=== PATIENT | male | born 1985 | race Caucasian/White ===

== ENCOUNTER 2022-06-22 16:21 | Inpatient (IN) ==
[2022-06-22] MEDS ORDERED: NS 1,000 ML IV 1,000 ML IV ONE (16:42)
[2022-06-22] MEDS ORDERED: ZOFRAN INJ 4 MG VIAL IVP ONE (16:42)
[2022-06-22] MEDS ORDERED: DEMEROL INJ IM ONE (16:42)
--- NOTE | 2022-06-22 16:42 | DR.ABDMALE ---
HPI Time seen Time Seen by Provider: 06/22/22 16:39 PE Vital Signs Vital Signs: Temp Pulse Resp BP Pulse Ox O2 Del Method 06/22/22 20:27 22 06/22/22 21:01 113/74 06/22/22 21:01 107 H 40 H 06/22/22 21:00 109 H 44 H 06/22/22 20:45 107 H 40 H 06/22/22 20:30 102 H 25 H 06/22/22 20:30 124/79 06/22/22 20:30 102 H 25 H 06/22/22 20:30 124/79 06/22/22 20:15 110 H 44 H 06/22/22 20:00 113 H 49 H 06/22/22 20:00 121/70 06/22/22 19:45 113 H 36 H 06/22/22 19:30 111 H 37 H 06/22/22 19:30 117/71 06/22/22 19:15 113 H 43 H 06/22/22 19:57 30 H 06/22/22 19:00 114 H 36 H 06/22/22 19:00 119/75 06/22/22 17:50 35 H 06/22/22 18:45 122 H 46 H 100 06/22/22 18:30 125 H 36 H 98 06/22/22 18:28 121 H 30 H 98 06/22/22 18:28 172/120 06/22/22 18:15 124 H 28 H 96 06/22/22 18:00 126 H 37 H 92 L 06/22/22 17:45 126 H 28 H 85 L 06/22/22 17:41 125 H 99 06/22/22 17:15 119 H 27 H 06/22/22 17:00 132 H 48 H 06/22/22 16:45 141 H 35 H 06/22/22 17:20 30 H 06/22/22 16:38 135/94 06/22/22 16:38 135 H 39 H 94 L 06/22/22 16:30 141 H 35 H 95 06/22/22 16:24 154 H 50 H 83 L 06/22/22 16:22 97.8 F 153 H 17 135/94 97 Room Air ROR Labs Reviewed Result Diagrams: 06/25/22 05:13 06/25/22 05:13 Laboratory: WBC 13.3 X10^3/uL (3.6-10.0) H 06/22/22 20: RBC 4.50 X10^6/uL (4.7-6.0) L 06/22/22 20: Hgb 13.7 g/dL (13.5-18.0) 06/22/22 20: Hct 39.5 % (42.0-54.0) L 06/22/22 20: MCV 87.8 fL (80.0-100.0) 06/22/22 20: MCH 30.4 pg (27.0-34.0) 06/22/22 20: MCHC 34.6 g/dL (33.0-35.0) 06/22/22 20: RDW 13.7 % (11.6-16.5) 06/22/22: Plt Count 262 X10^3/uL (150.0-450.0) 06/22/22 20: MPV 8.9 fL (7.4-11.0) 06/22/22 20: Neut % (Auto) 78.2 % (42.0-75.0) H 06/22/22 20: Lymph % (Auto) 12.9 % (21.0-51.0) L 06/22/22: [place] % (Auto) 8.4 % (0.0-13.0) 06/22/22: Eos % (Auto) 0.0 % (0.9-2.9) L 06/22/22: Baso % (Auto) 0.5 % (0.2-1.0) 06/22/22: Neut # (Auto) 10.4 x10^3/uL (2.2-4.8) H 06/22/22 20: Lymph # (Auto) 1.7 X10^3/uL (1.3-2.9) 06/22/22 20: [place] # (Auto) 1.1 x10^3/uL (0.3-0.8) H 06/22/22 20: Eos # (Auto) 0.0 x10^3/uL (0.0-0.2) 06/22/22 20:23 Baso # (Auto) 0.1 X10^3/uL (0.0-0.1) 06/22/22 20:23 Absolute Nucleated RBC 0.0 /100WBC 06/22/22 20:23 Sodium 138 mmol/L (136-145) 06/22/22 16:36 Corrected Sodium 138 mmol/L (136-145) 06/22/22 16:36 Potassium 4.4 mmol/L (3.5-5.1) 06/22/22 16:36 Chloride 102 mmol/L (98-107) 06/22/22 16:36 Carbon Dioxide 27.5 mmol/L (21-32) 06/22/22 16:36 BUN 20 mg/dL (7-18) H 06/22/22 16:36 Creatinine 1.19 mg/dL (0.70-1.30) 06/22/22 16:36 Est GFR (MDRD) Af Amer > 60 (>60) 06/22/22 16:36 Est GFR (MDRD) Non-Af > 60 (>60) 06/22/22 16:36 Glucose 111 mg/dL (65-99) H 06/22/22 16:36 Calcium 9.3 mg/dL (8.5-10.1) 06/22/22 16:36 Corrected Calcium TNP 06/22/22 16:36 Total Bilirubin 0.70 mg/dL (0.2-1.0) 06/22/22 16:36 AST 11 Units/L (15-37) L 06/22/22 16:36 ALT 18 Units/L (12-78) 06/22/22 16:36 Alkaline Phosphatase 77 Units/L (46-116) 06/22/22 16:36 Creatine Kinase 47 Units/L (39-308) 06/22/22 16:36 Troponin I High Sens 6.8 ng/L (4.0-60.0) 06/22/22 16:36 Total Protein 7.8 g/dL (6.4-8.2) 06/22/22 16:36 Albumin 4.5 g/dL (3.4-5.0) 06/22/22 16:36 Globulin 3.3 g/dL (2.5-4.5) 06/22/22 16:36 Albumin/Globulin Ratio 1.4 Ratio (1.1-2.1) 06/22/22 16:36 Amylase 34 Units/L (25-115) 06/22/22 16:36 Lipase 54 Units/L (73-393) L 06/22/22 16:36 Specimen Type Clean catch urine 06/22/22 18:48 Urine Color Yellow (YELLOW) 06/22/22 18:48 Urine Appearance Clear (CLEAR) 06/22/22 18:48 Urine pH 5.0 (5.0 - 8.0) 06/22/22 18:48 Ur Specific [place] 1.010 (1.000-1.030) 06/22/22 18:48 Urine Protein 2+ (NEGATIVE) 06/22/22 18:48 Urine Glucose (UA) Negative (NEGATIVE) 06/22/22 18:48 Urine Ketones 3+ (NEGATIVE) 06/22/22 18:48 Urine Blood 1+ (NEGATIVE) 06/22/22 18:48 Urine Nitrite Negative (NEGATIVE) 06/22/22 18:48 Urine Bilirubin Negative (NEGATIVE) 06/22/22 18:48 Urine Urobilinogen 1+ (NORMAL) 06/22/22 18:48 Ur Leukocyte Esterase Negative (NEGATIVE) 06/22/22 18:48 Urine RBC 0-2 /HPF (0-3) 06/22/22 18:48 Urine WBC None seen /HPF (0-5) 06/22/22 18:48 Ur Squamous Epith Cells Few /HPF (NEGATIVE) 06/22/22 18:48 Urine Bacteria Trace /HPF (NEGATIVE) 06/22/22 18:48 Urine Mucus Moderate /HPF (NEGATIVE) 06/22/22 18:48 Ur Culture Indicated? No/not indicated 06/22/22 18:48 Urine Opiates Screen Negative (NEG=<300) 06/22/22 18:48 Urine Methadone Screen Negative (NEG=<300) 06/22/22 18:48 Ur Barbiturates Screen Negative (NEG=<200) 06/22/22 18:48 Ur Phencyclidine Scrn Negative (NEG=<25) 06/22/22 18:48 Ur Amphetamines Screen Positive (NEG=<1000) 06/22/22 18:48 U Benzodiazepines Scrn Negative (NEG=<200) 06/22/22 18:48 Urine Cocaine Screen Negative (NEG=<300) 06/22/22 18:48 U Marijuana (THC) Screen Positive (NEG=<50) A 06/22/22 18:48 Opioid Opioid Risk Tool Total: 0 Total Score Risk Category: Low Risk Copyright: Kevin STYLES predicting aberrant behaviors Discharge Plan Discharge Plan Patient Disposition: 09 ADMITTED INPATIENT Condition: Stable
[2022-06-22 16:46] LABS: BASOPHILS # (AUTO) 0.1 X10^3/uL (0.0-0.1); BASOPHILS % (AUTO) 0.3 % (0.2-1.0); EOSINOPHILS % (AUTO) 0.2 % (0.9-2.9); HEMATOCRIT 43.6 % (42.0-54.0); LYMPHOCYTES # (AUTO) 1.4 X10^3/uL (1.3-2.9); MEAN CORPUSCULAR HEMOGLOBIN 30.4 pg (27.0-34.0); MEAN CORPUSCULAR HGB CONC 34.5 g/dL (33.0-35.0); MEAN CORPUSCULAR VOLUME 88.2 fL (80.0-100.0); MEAN PLATELET VOLUME 9.2 fL (7.4-11.0); MONOCYTES # (AUTO) 1.4 x10^3/uL (0.3-0.8); MONOCYTES % (AUTO) 7.1 % (0.0-13.0); NEUTROPHILS # (AUTO) 16.7 x10^3/uL (2.2-4.8); NEUTROPHILS % (AUTO) 85.4 % (42.0-75.0); RED BLOOD COUNT 4.94 X10^6/uL (4.7-6.0); RED CELL DISTRIBUTION WIDTH 13.3 % (11.6-16.5); WHITE BLOOD COUNT 19.6 X10^3/uL (3.6-10.0)
--- NOTE | 2022-06-22 16:57 | EKG ---
Test Reason : tachycardia Blood Pressure : */* mmHG Vent. Rate : 137 BPM Atrial Rate : 137 BPM P-R Int : 102 ms QRS Dur : 66 ms QT Int : 266 ms P-R-T Axes : * 60 38 degrees QTc Int : 401 ms Sinus tachycardia with short VT Otherwise normal ECG Confirmed by Fili Quinonez ([id number]) on 06/24/2022 10:56:38 AM Referred By: Confirmed By: Fili Quinonez
[2022-06-22 17:01] LABS: ALANINE AMINOTRANSFERASE 18 Units/L (12-78); ALBUMIN 4.5 g/dL (3.4-5.0); ALKALINE PHOSPHATASE 77 Units/L (46-116); AMYLASE 34 Units/L (25-115); ASPARTATE AMINO TRANSFERASE 11 Units/L (15-37); BLOOD UREA NITROGEN 20 mg/dL (7-18); CALCIUM 9.3 mg/dL (8.5-10.1); CARBON DIOXIDE 27.5 mmol/L (21-32); CHLORIDE 102 mmol/L (98-107); COR NA(FOR HYPERGLY) 138 mmol/L (136-145); CREATINE KINASE 47 Units/L (39-308); CREATININE 1.19 mg/dL (0.70-1.30); LIPASE 54 Units/L (73-393); SODIUM 138 mmol/L (136-145); TOTAL PROTEIN 7.8 g/dL (6.4-8.2); eGFR NON BLACK RACES > 60 (>60)
[2022-06-22] MEDS ORDERED: DEMEROL INJ ONE (17:06)
[2022-06-22] MEDS ORDERED: ZOFRAN INJ 4 MG VIAL ONE (17:06)
[2022-06-22] MEDS ORDERED: NS 1,000 ML IV 1,000 ML ONE (17:07)
--- NOTE | 2022-06-22 17:09 | RAD ---
CHEST, 1 VIEWHISTORY: RLQ ABD PAINStudy: Flat and upright views of the abdomenComparison:NoneFindings:There is a normal bowel gas pattern.No free air..No abnormal calcifications or abnormal soft tissue shadows. No acute bony abnormalities.IMPRESSION:1.No evidence for acute abdominal pathology.Electronically signed by: MAXI MELGOZA (Jun 22, 2022 17:07:38)
--- NOTE | 2022-06-22 17:56 | CT ---
HISTORYLower abdominal pain since last night around 11pm. States his intestines swell shut. States it last happened 2-3 years ago. States he was treated with IVFs and NG tube.STUDYABDOMEN/PELVIS WITH CONCOMPARISONReport only from October 03, 2018TECHNIQUEAxial CT images of the abdomen and pelvis were obtained after the administration of IV contrast, 100 mL Omnipaque 350, and reformatted into coronal and sagittal planes for further evaluation.Radiation dose: 159.46 mGy-cm total DLPLimited by patient motion.FINDINGSLung bases are clear.Stomach appears normal.Solid visceral organs of the upper abdomen are unremarkable.Gallbladder appears normal with no biliary dilatation.Homogeneous enhancement of the kidneys without hydronephrosis or hydroureter.Unremarkable appearance of the urinary bladder.Imaged reproductive structures are unremarkable.Small to moderate stool burden in the colon.Otherwise, unremarkable appearance of the large and small bowel; given the limitation of patient motion.No evidence of acute appendicitis.No pneumoperitoneum.No significant fluid collection.No adenopathy.No acute osseous abnormality.IMPRESSIONNo acute intra-abdominal abnormality detected. Limited by patient motion.Electronically signed by: Kunal Patel (Jun 22, 2022 17:54:47)
[2022-06-22 18:58] LABS: BILIRUBIN,URINE NEGATIVE (NEGATIVE); BLOOD/HEMOGLOBIN,URINE 1+ (NEGATIVE); GLUCOSE, URINE NEGATIVE (NEGATIVE); KETONES,URINE 3+ (NEGATIVE); LEUKOCYTE ESTERASE ,URINE NEGATIVE (NEGATIVE); NITRITES,URINE NEGATIVE (NEGATIVE); PROTEIN,URINE 2+ (NEGATIVE); UROBILINOGEN,URINE 1+ (NORMAL)
[2022-06-22 19:15] LABS: APPEARANCE,URINE CLEAR (CLEAR); BACTERIA,URINE TRACE /HPF (NEGATIVE); COLOR,URINE YELLOW (YELLOW); RBC,URINE 0-2 /HPF (0-3); SQUAMOUS EPITHELIAL CELL,UR FEW /HPF (NEGATIVE)
[2022-06-22] MEDS ORDERED: TORADOL 30 MG VIAL IVP ONE (19:51)
[2022-06-22] MEDS ORDERED: TORADOL 30 MG VIAL ONE (19:52)
[2022-06-22 20:30] LABS: BASOPHILS # (AUTO) 0.1 X10^3/uL (0.0-0.1); BASOPHILS % (AUTO) 0.5 % (0.2-1.0); HEMATOCRIT 39.5 % (42.0-54.0); HEMOGLOBIN 13.7 g/dL (13.5-18.0); LYMPHOCYTES # (AUTO) 1.7 X10^3/uL (1.3-2.9); LYMPHOCYTES % (AUTO) 12.9 % (21.0-51.0); MEAN CORPUSCULAR HEMOGLOBIN 30.4 pg (27.0-34.0); MEAN CORPUSCULAR HGB CONC 34.6 g/dL (33.0-35.0); MEAN CORPUSCULAR VOLUME 87.8 fL (80.0-100.0); MEAN PLATELET VOLUME 8.9 fL (7.4-11.0); MONOCYTES # (AUTO) 1.1 x10^3/uL (0.3-0.8); MONOCYTES % (AUTO) 8.4 % (0.0-13.0); NEUTROPHILS # (AUTO) 10.4 x10^3/uL (2.2-4.8); NEUTROPHILS % (AUTO) 78.2 % (42.0-75.0); RED CELL DISTRIBUTION WIDTH 13.7 % (11.6-16.5); WHITE BLOOD COUNT 13.3 X10^3/uL (3.6-10.0)
[2022-06-22] MEDS ORDERED: ZOFRAN INJ 4 MG VIAL IVP PRN (21:58)
[2022-06-22] MEDS: MORPHINE SULFATE INJ 2 MG INJ IVP PRN (22:16)
[2022-06-22] MEDS: NS 1,000 ML IV 1,000 ML IV SCH (22:17)
[2022-06-22 22:21] VITALS: BMI 23.4
[2022-06-23] MEDS: DILAUDID INJ IVP PRN ×7 (00:09→19:42)
--- NOTE | 2022-06-23 00:14 | DR.H&P ---
H&P History & Physical for Day of: H&P Date: 06/22/22 Chief Complaint Chief Complaint: Abdominal pain. Allergies Allergies Allergy/AdvReac Type Severity Reaction Status Date / Time No Known Allergies Allergy Verified 06/22/22 17:22 History of Present Illness History of Present Illness: 37 yo prisoner with acute onset of right lower quadrant pain this evening. History in the past of ileus treated with NG tube . No other significant past medical history. No history of abdominal surgery. CXR with no acute infiltrate . No abdominal distention. CT of the abdomen was negative. Still with significant RLQ abdominal pain. Past Surgical History Surgical History: No History Family History Family Medical History: Cancer Social History Does patient currently use any type of tobacco product: No Have you used tobacco products in the last 12 months: No Type of Tobacco Use: None Does any household member use tobacco: No Alcohol Use: None Drug Use: None Medications Home Medications: No Known Allergies Allergy (Verified 06/22/22 17:22) CONTINUE taking the following medications NK 06/22/22 [History] Labs Result Diagrams: 06/22/22 20:23 06/22/22 16:36 Labs: Laboratory WBC 13.3 X10^3/uL (3.6-10.0) H 06/22/22 20: RBC 4.50 X10^6/uL (4.7-6.0) L 06/22/22 20: Hgb 13.7 g/dL (13.5-18.0) 06/22/22 20: Hct 39.5 % (42.0-54.0) L 06/22/22: MCV 87.8 fL (80.0-100.0) 06/22/22 20: MCH 30.4 pg (27.0-34.0) 06/22/22: MCHC 34.6 g/dL (33.0-35.0) 06/22/22: RDW 13.7 % (11.6-16.5) 06/22/22: Plt Count 262 X10^3/uL (150.0-450.0) 06/22/22 20: MPV 8.9 fL (7.4-11.0) 06/22/22: Neut % (Auto) 78.2 % (42.0-75.0) H 06/22/22 20:23 Lymph % (Auto) 12.9 % (21.0-51.0) L 06/22/22 20:23 [place] % (Auto) 8.4 % (0.0-13.0) 06/22/22 20: Eos % (Auto) 0.0 % (0.9-2.9) L 06/22/22 20: Baso % (Auto) 0.5 % (0.2-1.0) 06/22/22 20: Neut # (Auto) 10.4 x10^3/uL (2.2-4.8) H 06/22/22 20: Lymph # (Auto) 1.7 X10^3/uL (1.3-2.9) 06/22/22 20:23 [place] # (Auto) 1.1 x10^3/uL (0.3-0.8) H 06/22/22 20: Eos # (Auto) 0.0 x10^3/uL (0.0-0.2) 06/22/22: Baso # (Auto) 0.1 X10^3/uL (0.0-0.1) 06/22/22 20: Absolute Nucleated RBC 0.0 /100WBC 06/22/22 20:23 Sodium 138 mmol/L (136-145) 06/22/22 16:36 Corrected Sodium 138 mmol/L (136-145) 06/22/22 16:36 Potassium 4.4 mmol/L (3.5-5.1) 06/22/22 16:36 Chloride 102 mmol/L (98-107) 06/22/22 16:36 Carbon Dioxide 27.5 mmol/L (21-32) 06/22/22 16:36 BUN 20 mg/dL (7-18) H 06/22/22 16:36 Creatinine 1.19 mg/dL (0.70-1.30) 06/22/22 16:36 Est GFR (MDRD) Af Amer > 60 (>60) 06/22/22 16:36 Est GFR (MDRD) Non-Af > 60 (>60) 06/22/22 16:36 Glucose 111 mg/dL (65-99) H 06/22/22 16:36 Calcium 9.3 mg/dL (8.5-10.1) 06/22/22 16:36 Corrected Calcium TNP 06/22/22 16:36 Total Bilirubin 0.70 mg/dL (0.2-1.0) 06/22/22 16:36 AST 11 Units/L (15-37) L 06/22/22 16:36 ALT 18 Units/L (12-78) 06/22/22 16:36 Alkaline Phosphatase 77 Units/L (46-116) 06/22/22 16:36 Creatine Kinase 47 Units/L (39-308) 06/22/22 16:36 Troponin I High Sens 6.8 ng/L (4.0-60.0) 06/22/22 16:36 Total Protein 7.8 g/dL (6.4-8.2) 06/22/22 16:36 Albumin 4.5 g/dL (3.4-5.0) 06/22/22 16:36 Globulin 3.3 g/dL (2.5-4.5) 06/22/22 16:36 Albumin/Globulin Ratio 1.4 Ratio (1.1-2.1) 06/22/22 16:36 Amylase 34 Units/L (25-115) 06/22/22 16:36 Lipase 54 Units/L (73-393) L 06/22/22 16:36 Specimen Type Clean catch urine 06/22/22 18:48 Urine Color Yellow (YELLOW) 06/22/22 18:48 Urine Appearance Clear (CLEAR) 06/22/22 18:48 Urine pH 5.0 (5.0 - 8.0) 06/22/22 18:48 Ur Specific [place] 1.010 (1.000-1.030) 06/22/22 18:48 Urine Protein 2+ (NEGATIVE) 06/22/22 18:48 Urine Glucose (UA) Negative (NEGATIVE) 06/22/22 18:48 Urine Ketones 3+ (NEGATIVE) 06/22/22 18:48 Urine Blood 1+ (NEGATIVE) 06/22/22 18:48 Urine Nitrite Negative (NEGATIVE) 06/22/22 18:48 Urine Bilirubin Negative (NEGATIVE) 06/22/22 18:48 Urine Urobilinogen 1+ (NORMAL) 06/22/22 18:48 Ur Leukocyte Esterase Negative (NEGATIVE) 06/22/22 18:48 Urine RBC 0-2 /HPF (0-3) 06/22/22 18:48 Urine WBC None seen /HPF (0-5) 06/22/22 18:48 Ur Squamous Epith Cells Few /HPF (NEGATIVE) 06/22/22 18:48 Urine Bacteria Trace /HPF (NEGATIVE) 06/22/22 18:48 Urine Mucus Moderate /HPF (NEGATIVE) 06/22/22 18:48 Ur Culture Indicated? No/not indicated 06/22/22 18:48 Urine Opiates Screen Negative (NEG=<300) 06/22/22 18:48 Urine Methadone Screen Negative (NEG=<300) 06/22/22 18:48 Ur Barbiturates Screen Negative (NEG=<200) 06/22/22 18:48 Ur Phencyclidine Scrn Negative (NEG=<25) 06/22/22 18:48 Ur Amphetamines Screen Positive (NEG=<1000) 06/22/22 18:48 U Benzodiazepines Scrn Negative (NEG=<200) 06/22/22 18:48 Urine Cocaine Screen Negative (NEG=<300) 06/22/22 18:48 U Marijuana (THC) Screen Positive (NEG=<50) A 06/22/22 18:48 Review of Systems Constitutional: See HPI Eyes: No Symptoms Reported ENT: No Symptoms Reported Respiratory: No Symptoms Reported Cardiovascular: No Symptoms Reported Gastrointestinal: See HPI Genitourinary: No Symptoms Reported Musculoskeletal: No Symptoms Reported Skin: No Symptoms Reported Neurological: No Symptoms Reported Physical Exam Vital Signs: Temperature 98.2 F Pulse Rate [Left Radial] 100 Pulse Rate 93 Respiratory Rate 22 Blood Pressure [Left Arm] 127/69 Blood Pressure 190/81 O2 Sat by Pulse Oximetry 100 Oriented: Normal, Time, Person and Place Eyes: Normal Ear: Normal Nose: Normal Throat: Normal Respiratory: Clear Throughout Cardiovascular: Tachycardia : Normal Auscultation: Bowel Sounds: Normal Palpation: Normal Tenderness: Diffuse (voluntary guarding. he localizes pain to the RLQ. ) Skin: Normal Musculoskeletal: Normal Mood Description: Anxious Affect: Anxious Speech Pattern: Clear Assessment/Plan (1) Right lower quadrant pain: Status: Acute Plan: Pain control and IV fluids . If still c/o abdominal pain and if has continued tenderness in the RLQ will plan laparoscopy. Review H&P Reviewed: Yes Patient was examined?: Yes
[2022-06-23] MEDS: PROTONIX INJ 40 MG VIAL IVP SCH (01:03)
[2022-06-23 06:21] LABS: BASOPHILS # (AUTO) 0.1 X10^3/uL (0.0-0.1); BASOPHILS % (AUTO) 0.5 % (0.2-1.0); EOSINOPHILS # (AUTO) 0.2 x10^3/uL (0.0-0.2); EOSINOPHILS % (AUTO) 1.8 % (0.9-2.9); HEMATOCRIT 36.6 % (42.0-54.0); HEMOGLOBIN 12.8 g/dL (13.5-18.0); LYMPHOCYTES # (AUTO) 2.9 X10^3/uL (1.3-2.9); LYMPHOCYTES % (AUTO) 26.7 % (21.0-51.0); MEAN CORPUSCULAR HGB CONC 35.1 g/dL (33.0-35.0); MEAN CORPUSCULAR VOLUME 88.4 fL (80.0-100.0); MEAN PLATELET VOLUME 9.8 fL (7.4-11.0); MONOCYTES # (AUTO) 1.1 x10^3/uL (0.3-0.8); MONOCYTES % (AUTO) 10.5 % (0.0-13.0); NEUTROPHILS # (AUTO) 6.5 x10^3/uL (2.2-4.8); NEUTROPHILS % (AUTO) 60.5 % (42.0-75.0); RED BLOOD COUNT 4.14 X10^6/uL (4.7-6.0); RED CELL DISTRIBUTION WIDTH 13.2 % (11.6-16.5); WHITE BLOOD COUNT 10.8 X10^3/uL (3.6-10.0)
[2022-06-23 06:26] LABS: ALANINE AMINOTRANSFERASE 16 Units/L (12-78); ALBUMIN 3.6 g/dL (3.4-5.0); ALKALINE PHOSPHATASE 58 Units/L (46-116); AMYLASE 41 Units/L (25-115); ASPARTATE AMINO TRANSFERASE 22 Units/L (15-37); BLOOD UREA NITROGEN 20 mg/dL (7-18); CALCIUM 8.2 mg/dL (8.5-10.1); CARBON DIOXIDE 25.4 mmol/L (21-32); CHLORIDE 107 mmol/L (98-107); CREATININE 0.89 mg/dL (0.70-1.30); LIPASE 82 Units/L (73-393); SODIUM 140 mmol/L (136-145); TOTAL PROTEIN 6.3 g/dL (6.4-8.2); eGFR NON BLACK RACES > 60 (>60)
[2022-06-23] MEDS: NS 1,000 ML IV 1,000 ML IV SCH ×3 (08:16→18:04)
[2022-06-23] MEDS: MORPHINE SULFATE INJ 2 MG INJ IVP PRN (23:07)
[2022-06-23] MEDS: MILK OF MAGNESIA PO PRN (23:26)
--- NOTE | 2022-06-24 | NOTE.SOAP ---
Soap Note Note for Day of Date of Exam: 06/23/22 Subjective Data Subjective Data: Patient with less pain since admission, but still c/o RLQ pain. No longer diaphoretic. Objective Data Temperature: 97.8 F Pulse Rate: 91 Respiratory Rate: 18 Blood Pressure: 124/85 O2 Sat by Pulse Oximetry: 95 Objective Data: No distention of abdomen. Mild tenderness RLQ. Extensive abdominal guarding . Hgb=12.8, WBC= 10.8 Assessment Assessment: Improving abdominal pain. Plan Plan: Begin clear liquid.
[2022-06-24] MEDS: DILAUDID INJ IVP PRN ×3 (02:10→14:24)
[2022-06-24] MEDS: NS 1,000 ML IV 1,000 ML IV SCH ×4 (03:18→22:54)
[2022-06-24] MEDS: MORPHINE SULFATE INJ 2 MG INJ IVP PRN ×3 (05:44→16:47)
[2022-06-24 06:26] LABS: BASOPHILS # (AUTO) 0.1 X10^3/uL (0.0-0.1); BASOPHILS % (AUTO) 0.7 % (0.2-1.0); EOSINOPHILS # (AUTO) 0.4 x10^3/uL (0.0-0.2); EOSINOPHILS % (AUTO) 4.3 % (0.9-2.9); HEMATOCRIT 33.6 % (42.0-54.0); HEMOGLOBIN 11.8 g/dL (13.5-18.0); LYMPHOCYTES # (AUTO) 2.5 X10^3/uL (1.3-2.9); LYMPHOCYTES % (AUTO) 28.1 % (21.0-51.0); MEAN CORPUSCULAR HEMOGLOBIN 31.3 pg (27.0-34.0); MEAN CORPUSCULAR HGB CONC 35.1 g/dL (33.0-35.0); MEAN CORPUSCULAR VOLUME 89.2 fL (80.0-100.0); MEAN PLATELET VOLUME 9.4 fL (7.4-11.0); MONOCYTES # (AUTO) 0.6 x10^3/uL (0.3-0.8); MONOCYTES % (AUTO) 7.1 % (0.0-13.0); NEUTROPHILS # (AUTO) 5.4 x10^3/uL (2.2-4.8); NEUTROPHILS % (AUTO) 59.8 % (42.0-75.0); RED BLOOD COUNT 3.77 X10^6/uL (4.7-6.0); RED CELL DISTRIBUTION WIDTH 13.2 % (11.6-16.5); WHITE BLOOD COUNT 9.1 X10^3/uL (3.6-10.0)
[2022-06-24 06:58] LABS: ALANINE AMINOTRANSFERASE 15 Units/L (12-78); ALKALINE PHOSPHATASE 51 Units/L (46-116); ASPARTATE AMINO TRANSFERASE 16 Units/L (15-37); BLOOD UREA NITROGEN 11 mg/dL (7-18); CALCIUM 7.6 mg/dL (8.5-10.1); CARBON DIOXIDE 27.7 mmol/L (21-32); CHLORIDE 104 mmol/L (98-107); COR CA(FOR HYPOALB) 8.4 mg/dL (8.5-10.1); SODIUM 138 mmol/L (136-145); TOTAL PROTEIN 5.5 g/dL (6.4-8.2); eGFR NON BLACK RACES > 60 (>60)
[2022-06-24] MEDS: PROTONIX INJ 40 MG VIAL IVP SCH (08:23)
[2022-06-24] MEDS: PERCOCET TAB 5/325 MG PO PRN (19:53)
[2022-06-24] MEDS: MILK OF MAGNESIA PO PRN (21:23)
--- NOTE | 2022-06-24 23:19 | NOTE.SOAP ---
Soap Note Note for Day of Date of Exam: 06/24/22 Subjective Data Subjective Data: Patient tolerating clear liquids well. Still c/o pain in RLQ but no longer guarding . Objective Data Temperature: 98.5 F Pulse Rate: 63 Respiratory Rate: 16 Blood Pressure: 135/58 O2 Sat by Pulse Oximetry: 97 Assessment Assessment: Abdominal pain resolving . WBC returned to normal. Tolerating liquids Plan Plan: Advance to regular diet. D/C IV Dilaudid. PO Percocet.
[2022-06-25] MEDS: NS 1,000 ML IV 1,000 ML IV SCH ×2 (01:41→06:24)
[2022-06-25] MEDS: PERCOCET TAB 5/325 MG PO PRN ×3 (01:42→11:23)
[2022-06-25 06:40] LABS: BASOPHILS # (AUTO) 0.1 X10^3/uL (0.0-0.1); BASOPHILS % (AUTO) 0.8 % (0.2-1.0); EOSINOPHILS # (AUTO) 0.4 x10^3/uL (0.0-0.2); EOSINOPHILS % (AUTO) 5.3 % (0.9-2.9); HEMATOCRIT 33.9 % (42.0-54.0); HEMOGLOBIN 11.9 g/dL (13.5-18.0); LYMPHOCYTES # (AUTO) 2.2 X10^3/uL (1.3-2.9); LYMPHOCYTES % (AUTO) 28.2 % (21.0-51.0); MEAN CORPUSCULAR HEMOGLOBIN 31.1 pg (27.0-34.0); MEAN CORPUSCULAR HGB CONC 35.2 g/dL (33.0-35.0); MEAN CORPUSCULAR VOLUME 88.3 fL (80.0-100.0); MEAN PLATELET VOLUME 9.6 fL (7.4-11.0); MONOCYTES # (AUTO) 0.8 x10^3/uL (0.3-0.8); MONOCYTES % (AUTO) 10.1 % (0.0-13.0); NEUTROPHILS # (AUTO) 4.3 x10^3/uL (2.2-4.8); NEUTROPHILS % (AUTO) 55.6 % (42.0-75.0); RED BLOOD COUNT 3.84 X10^6/uL (4.7-6.0); RED CELL DISTRIBUTION WIDTH 13.2 % (11.6-16.5); WHITE BLOOD COUNT 7.7 X10^3/uL (3.6-10.0)
[2022-06-25 07:17] LABS: ALANINE AMINOTRANSFERASE 15 Units/L (12-78); ALBUMIN 2.8 g/dL (3.4-5.0); ALKALINE PHOSPHATASE 51 Units/L (46-116); ASPARTATE AMINO TRANSFERASE 11 Units/L (15-37); BLOOD UREA NITROGEN 5 mg/dL (7-18); CALCIUM 7.7 mg/dL (8.5-10.1); CARBON DIOXIDE 28.7 mmol/L (21-32); CHLORIDE 106 mmol/L (98-107); COR CA(FOR HYPOALB) 8.7 mg/dL (8.5-10.1); SODIUM 141 mmol/L (136-145); TOTAL PROTEIN 5.4 g/dL (6.4-8.2); eGFR NON BLACK RACES > 60 (>60)
[2022-06-25] MEDS: PROTONIX INJ 40 MG VIAL IVP SCH (08:30)
[2022-06-25 12:40] VITALS: BP 142/69
--- NOTE | 2022-06-25 14:10 | W.DIS.FURT ---
Summary of Discharge Discharge Summary of Date Date of Exam: 06/25/22 Admission Date Date of Admission: 06/22/22 Admission Diagnosis Hospital Course: The patietn is a 37 year old male who is currently a prisoner in [facility]. His real name is Rasta Gotti .He presented with acute onset of right lower quadrant pain with a white blood cell count of 19.6k. He complained of right lower quadrant pain and had significant guarding throughout. CT scan done in the emergency room without oral contrast showed no obvious appendicitis and no abnormal findings. He was observed initially on IVFs fluid and was NPO .. His pain has s lessened and and he is tolerating a regular diet. . He will be discharged back to his usual shelter facility. He will be given Percocet, 5 mg tablets, one Po q 6 Hr PRN pain. Vital Signs: Vital Signs (72 hours) 06/23/22 23:59 06/24/22 23:38 06/22/22 16:22 Temperature 97.8 F 98.5 F 97.8 F Pulse Rate 91 H 63 153 H Pulse Rate [Left Radial] Respiratory Rate 18 16 17 Blood Pressure 124/85 135/58 135/94 Blood Pressure [Left Arm] O2 Sat by Pulse Oximetry 95 97 97 Oxygen Delivery Method Room Air 06/22/22 16:24 06/22/22 16:30 06/22/22 16:38 Temperature Pulse Rate 154 H 141 H 135 H Pulse Rate [Left Radial] Respiratory Rate 50 H 35 H 39 H Blood Pressure Blood Pressure [Left Arm] O2 Sat by Pulse Oximetry 83 L 95 94 L Oxygen Delivery Method 06/22/22 16:38 06/22/22 17:20 06/22/22 16:45 Temperature Pulse Rate 141 H Pulse Rate [Left Radial] Respiratory Rate 30 H 35 H Blood Pressure 135/94 Blood Pressure [Left Arm] O2 Sat by Pulse Oximetry Oxygen Delivery Method 06/22/22 17:00 06/22/22 17:15 06/22/22 17:41 Temperature Pulse Rate 132 H 119 H 125 H Pulse Rate [Left Radial] Respiratory Rate 48 H 27 H Blood Pressure Blood Pressure [Left Arm] O2 Sat by Pulse Oximetry 99 Oxygen Delivery Method 06/22/22 17:45 06/22/22 18:00 06/22/22 18:15 Temperature Pulse Rate 126 H 126 H 124 H Pulse Rate [Left Radial] Respiratory Rate 28 H 37 H 28 H Blood Pressure Blood Pressure [Left Arm] O2 Sat by Pulse Oximetry 85 L 92 L 96 Oxygen Delivery Method 06/22/22 18:28 06/22/22 18:28 06/22/22 18:30 Temperature Pulse Rate 121 H 125 H Pulse Rate [Left Radial] Respiratory Rate 30 H 36 H Blood Pressure 172/120 Blood Pressure [Left Arm] O2 Sat by Pulse Oximetry 98 98 Oxygen Delivery Method 06/22/22 18:45 06/22/22 17:50 06/22/22 19:00 Temperature Pulse Rate 122 H Pulse Rate [Left Radial] Respiratory Rate 46 H 35 H Blood Pressure 119/75 Blood Pressure [Left Arm] O2 Sat by Pulse Oximetry 100 Oxygen Delivery Method 06/22/22 19:00 06/22/22 19:57 06/22/22 19:15 Temperature Pulse Rate 114 H 113 H Pulse Rate [Left Radial] Respiratory Rate 36 H 30 H 43 H Blood Pressure Blood Pressure [Left Arm] O2 Sat by Pulse Oximetry Oxygen Delivery Method 06/22/22 19:30 06/22/22 19:30 06/22/22 19:45 Temperature Pulse Rate 111 H 113 H Pulse Rate [Left Radial] Respiratory Rate 37 H 36 H Blood Pressure 117/71 Blood Pressure [Left Arm] O2 Sat by Pulse Oximetry Oxygen Delivery Method 06/22/22 20:00 06/22/22 20:00 06/22/22 20:15 Temperature Pulse Rate 113 H 110 H Pulse Rate [Left Radial] Respiratory Rate 49 H 44 H Blood Pressure 121/70 Blood Pressure [Left Arm] O2 Sat by Pulse Oximetry Oxygen Delivery Method 06/22/22 20:30 06/22/22 20:30 06/22/22 20:30 Temperature Pulse Rate 102 H Pulse Rate [Left Radial] Respiratory Rate 25 H Blood Pressure 124/79 124/79 Blood Pressure [Left Arm] O2 Sat by Pulse Oximetry Oxygen Delivery Method 06/22/22 20:30 06/22/22 20:45 06/22/22 21:00 Temperature Pulse Rate 102 H 107 H 109 H Pulse Rate [Left Radial] Respiratory Rate 25 H 40 H 44 H Blood Pressure Blood Pressure [Left Arm] O2 Sat by Pulse Oximetry Oxygen Delivery Method 06/22/22 21:01 06/22/22 21:01 06/22/22 21:15 Temperature Pulse Rate 107 H 105 H Pulse Rate [Left Radial] Respiratory Rate 40 H 36 H Blood Pressure 113/74 Blood Pressure [Left Arm] O2 Sat by Pulse Oximetry Oxygen Delivery Method 06/22/22 21:30 06/22/22 21:32 06/22/22 21:32 Temperature Pulse Rate 94 H 93 H Pulse Rate [Left Radial] Respiratory Rate 58 H 43 H Blood Pressure 190/81 Blood Pressure [Left Arm] O2 Sat by Pulse Oximetry Oxygen Delivery Method 06/22/22 21:44 06/22/22 21:45 06/22/22 21:45 Temperature 97.9 F Pulse Rate Pulse Rate [Left Radial] 99 H Respiratory Rate 27 H 22 Blood Pressure Blood Pressure [Left Arm] 120/72 O2 Sat by Pulse Oximetry 100 99 Oxygen Delivery Method Room Air Room Air 06/22/22 20:27 06/22/22 22:16 06/22/22 22:46 Temperature Pulse Rate Pulse Rate [Left Radial] Respiratory Rate 22 22 22 Blood Pressure Blood Pressure [Left Arm] O2 Sat by Pulse Oximetry Oxygen Delivery Method 06/23/22 00:00 06/23/22 00:00 06/23/22 00:09 Temperature 98.2 F 98.2 F Pulse Rate Pulse Rate [Left Radial] 100 H 100 H Respiratory Rate 20 20 22 Blood Pressure Blood Pressure [Left Arm] 127/69 127/69 O2 Sat by Pulse Oximetry 100 100 Oxygen Delivery Method Room Air Room Air 06/23/22 00:39 06/23/22 03:46 06/23/22 03:46 Temperature 97.9 F 97.9 F Pulse Rate Pulse Rate [Left Radial] 86 86 Respiratory Rate 22 22 22 Blood Pressure Blood Pressure [Left Arm] 111/55 111/55 O2 Sat by Pulse Oximetry 96 96 Oxygen Delivery Method Room Air Room Air 06/23/22 04:23 06/23/22 04:53 06/23/22 07:00 Temperature Pulse Rate Pulse Rate [Left Radial] Respiratory Rate 22 22 Blood Pressure Blood Pressure [Left Arm] O2 Sat by Pulse Oximetry Oxygen Delivery Method Room Air 06/23/22 08:15 06/23/22 08:00 06/23/22 08:45 Temperature 98.1 F Pulse Rate Pulse Rate [Left Radial] 88 Respiratory Rate 24 20 20 Blood Pressure Blood Pressure [Left Arm] 142/81 O2 Sat by Pulse Oximetry 97 Oxygen Delivery Method Room Air 06/23/22 11:20 06/23/22 11:50 06/23/22 14:35 Temperature Pulse Rate Pulse Rate [Left Radial] Respiratory Rate 20 18 20 Blood Pressure Blood Pressure [Left Arm] O2 Sat by Pulse Oximetry Oxygen Delivery Method 06/23/22 12:00 06/23/22 16:00 06/23/22 15:05 Temperature 98.1 F 99.6 F Pulse Rate Pulse Rate [Left Radial] 83 79 Respiratory Rate 20 20 18 Blood Pressure Blood Pressure [Left Arm] 99/56 129/60 O2 Sat by Pulse Oximetry 96 97 Oxygen Delivery Method Room Air Room Air 06/23/22 17:21 06/23/22 17:51 06/23/22 19:42 Temperature Pulse Rate Pulse Rate [Left Radial] Respiratory Rate 20 18 20 Blood Pressure Blood Pressure [Left Arm] O2 Sat by Pulse Oximetry Oxygen Delivery Method 06/23/22 19:00 06/23/22 20:00 06/23/22 23:07 Temperature 97.8 F Pulse Rate Pulse Rate [Left Radial] 91 H Respiratory Rate 18 20 Blood Pressure Blood Pressure [Left Arm] 124/85 O2 Sat by Pulse Oximetry 95 Oxygen Delivery Method Room Air Room Air 06/23/22 20:12 06/23/22 23:58 06/23/22 23:37 Temperature 97.8 F Pulse Rate Pulse Rate [Left Radial] 77 Respiratory Rate 20 18 20 Blood Pressure Blood Pressure [Left Arm] 124/69 O2 Sat by Pulse Oximetry 95 Oxygen Delivery Method Room Air 06/24/22 02:10 06/24/22 02:40 06/24/22 04:00 Temperature 98.3 F Pulse Rate Pulse Rate [Left Radial] 65 Respiratory Rate 20 18 18 Blood Pressure Blood Pressure [Left Arm] 120/62 O2 Sat by Pulse Oximetry 95 Oxygen Delivery Method Room Air 06/24/22 05:44 06/24/22 06:14 06/24/22 07:00 Temperature Pulse Rate Pulse Rate [Left Radial] Respiratory Rate 20 18 Blood Pressure Blood Pressure [Left Arm] O2 Sat by Pulse Oximetry Oxygen Delivery Method Room Air 06/24/22 08:23 06/24/22 08:00 06/24/22 08:53 Temperature 98.8 F Pulse Rate Pulse Rate [Left Radial] 51 L Respiratory Rate 18 20 20 Blood Pressure Blood Pressure [Left Arm] 140/85 O2 Sat by Pulse Oximetry 98 Oxygen Delivery Method Room Air 06/24/22 11:44 06/24/22 12:00 06/24/22 12:14 Temperature 98.2 F Pulse Rate Pulse Rate [Left Radial] 77 Respiratory Rate 18 18 18 Blood Pressure Blood Pressure [Left Arm] 130/58 O2 Sat by Pulse Oximetry 98 Oxygen Delivery Method Room Air 06/24/22 14:24 06/24/22 16:00 06/24/22 14:54 Temperature 98.5 F Pulse Rate Pulse Rate [Left Radial] 84 Respiratory Rate 20 20 18 Blood Pressure Blood Pressure [Left Arm] 117/78 O2 Sat by Pulse Oximetry 97 Oxygen Delivery Method Room Air 06/24/22 16:47 06/24/22 17:17 06/24/22 19:53 Temperature Pulse Rate Pulse Rate [Left Radial] Respiratory Rate 18 20 18 Blood Pressure Blood Pressure [Left Arm] O2 Sat by Pulse Oximetry Oxygen Delivery Method 06/24/22 20:00 06/24/22 19:00 06/24/22 20:53 Temperature 98.5 F Pulse Rate Pulse Rate [Left Radial] 69 Respiratory Rate 16 20 Blood Pressure Blood Pressure [Left Arm] 130/79 O2 Sat by Pulse Oximetry 97 Oxygen Delivery Method Room Air Room Air 06/24/22 23:22 06/25/22 01:42 06/25/22 02:42 Temperature 98.8 F Pulse Rate Pulse Rate [Left Radial] 68 Respiratory Rate 16 20 18 Blood Pressure Blood Pressure [Left Arm] 135/58 O2 Sat by Pulse Oximetry 96 Oxygen Delivery Method Room Air 06/25/22 03:55 06/25/22 03:55 06/25/22 06:24 Temperature 98.1 F 98.1 F Pulse Rate Pulse Rate [Left Radial] 70 70 Respiratory Rate 14 14 20 Blood Pressure Blood Pressure [Left Arm] 129/75 129/75 O2 Sat by Pulse Oximetry 97 97 Oxygen Delivery Method Room Air Room Air 06/25/22 07:24 06/25/22 08:00 06/25/22 07:00 Temperature 97.9 F Pulse Rate Pulse Rate [Left Radial] 76 Respiratory Rate 20 18 Blood Pressure Blood Pressure [Left Arm] 118/81 O2 Sat by Pulse Oximetry 98 Oxygen Delivery Method Room Air Room Air 06/25/22 11:23 06/25/22 12:00 Temperature 98.7 F Pulse Rate Pulse Rate [Left Radial] 64 Respiratory Rate 18 18 Blood Pressure Blood Pressure [Left Arm] 142/69 O2 Sat by Pulse Oximetry 98 Oxygen Delivery Method Room Air Labs: Laboratory Last Values WBC 7.7 X10^3/uL (3.6-10.0) 06/25/22 05:13 RBC 3.84 X10^6/uL (4.7-6.0) L 06/25/22 05:13 Hgb 11.9 g/dL (13.5-18.0) L 06/25/22 05:13 Hct 33.9 % (42.0-54.0) L 06/25/22 05:13 MCV 88.3 fL (80.0-100.0) 06/25/22 05:13 MCH 31.1 pg (27.0-34.0) 06/25/22 05:13 MCHC 35.2 g/dL (33.0-35.0) H 06/25/22 05:13 RDW 13.2 % (11.6-16.5) 06/25/22 05:13 Plt Count 210 X10^3/uL (150.0-450.0) 06/25/22 05:13 MPV 9.6 fL (7.4-11.0) 06/25/22 05:13 Neut % (Auto) 55.6 % (42.0-75.0) 06/25/22 05:13 Lymph % (Auto) 28.2 % (21.0-51.0) 06/25/22 05:13 [place] % (Auto) 10.1 % (0.0-13.0) 06/25/22 05:13 Eos % (Auto) 5.3 % (0.9-2.9) H 06/25/22 05:13 Baso % (Auto) 0.8 % (0.2-1.0) 06/25/22 05:13 Neut # (Auto) 4.3 x10^3/uL (2.2-4.8) 06/25/22 05:13 Lymph # (Auto) 2.2 X10^3/uL (1.3-2.9) 06/25/22 05:13 [place] # (Auto) 0.8 x10^3/uL (0.3-0.8) 06/25/22 05:13 Eos # (Auto) 0.4 x10^3/uL (0.0-0.2) H 06/25/22 05:13 Baso # (Auto) 0.1 X10^3/uL (0.0-0.1) 06/25/22 05:13 Absolute Nucleated RBC 0.0 /100WBC 06/25/22 05:13 Sodium 141 mmol/L (136-145) 06/25/22 05:13 Corrected Sodium TNP 06/25/22 05:13 Potassium 3.6 mmol/L (3.5-5.1) 06/25/22 05:13 Chloride 106 mmol/L (98-107) 06/25/22 05:13 Carbon Dioxide 28.7 mmol/L (21-32) 06/25/22 05:13 BUN 5 mg/dL (7-18) L 06/25/22 05:13 Creatinine 0.70 mg/dL (0.70-1.30) 06/25/22 05:13 Est GFR (MDRD) Af Amer > 60 (>60) 06/25/22 05:13 Est GFR (MDRD) Non-Af > 60 (>60) 06/25/22 05:13 Glucose 84 mg/dL (65-99) 06/25/22 05:13 Calcium 7.7 mg/dL (8.5-10.1) L 06/25/22 05:13 Corrected Calcium 8.7 mg/dL (8.5-10.1) 06/25/22 05:13 Total Bilirubin 0.40 mg/dL (0.2-1.0) 06/25/22 05:13 AST 11 Units/L (15-37) L 06/25/22 05:13 ALT 15 Units/L (12-78) 06/25/22 05:13 Alkaline Phosphatase 51 Units/L (46-116) 06/25/22 05:13 Creatine Kinase 47 Units/L (39-308) 06/22/22 16:36 Troponin I High Sens 6.8 ng/L (4.0-60.0) 06/22/22 16:36 Total Protein 5.4 g/dL (6.4-8.2) L 06/25/22 05:13 Albumin 2.8 g/dL (3.4-5.0) L 06/25/22 05:13 Globulin 2.6 g/dL (2.5-4.5) 06/25/22 05:13 Albumin/Globulin Ratio 1.1 Ratio (1.1-2.1) 06/25/22 05:13 Amylase 41 Units/L (25-115) 06/23/22 05:00 Lipase 82 Units/L (73-393) 06/23/22 05:00 Specimen Type Clean catch urine 06/22/22 18:48 Urine Color Yellow (YELLOW) 06/22/22 18:48 Urine Appearance Clear (CLEAR) 06/22/22 18:48 Urine pH 5.0 (5.0 - 8.0) 06/22/22 18:48 Ur Specific [place] 1.010 (1.000-1.030) 06/22/22 18:48 Urine Protein 2+ (NEGATIVE) 06/22/22 18:48 Urine Glucose (UA) Negative (NEGATIVE) 06/22/22 18:48 Urine Ketones 3+ (NEGATIVE) 06/22/22 18:48 Urine Blood 1+ (NEGATIVE) 06/22/22 18:48 Urine Nitrite Negative (NEGATIVE) 06/22/22 18:48 Urine Bilirubin Negative (NEGATIVE) 06/22/22 18:48 Urine Urobilinogen 1+ (NORMAL) 06/22/22 18:48 Ur Leukocyte Esterase Negative (NEGATIVE) 06/22/22 18:48 Urine RBC 0-2 /HPF (0-3) 06/22/22 18:48 Urine WBC None seen /HPF (0-5) 06/22/22 18:48 Ur Squamous Epith Cells Few /HPF (NEGATIVE) 06/22/22 18:48 Urine Bacteria Trace /HPF (NEGATIVE) 06/22/22 18:48 Urine Mucus Moderate /HPF (NEGATIVE) 06/22/22 18:48 Ur Culture Indicated? No/not indicated 06/22/22 18:48 Urine Opiates Screen Negative (NEG=<300) 06/22/22 18:48 Urine Methadone Screen Negative (NEG=<300) 06/22/22 18:48 Ur Barbiturates Screen Negative (NEG=<200) 06/22/22 18:48 Ur Phencyclidine Scrn Negative (NEG=<25) 06/22/22 18:48 Ur Amphetamines Screen Positive (NEG=<1000) 06/22/22 18:48 U Benzodiazepines Scrn Negative (NEG=<200) 06/22/22 18:48 Urine Cocaine Screen Negative (NEG=<300) 06/22/22 18:48 U Marijuana (THC) Screen Positive (NEG=<50) A 06/22/22 18:48 Reason For Visit: RLQ ABD PAIN, LEUKOCYTOSIS Discharge Diagnosis All Active Problems (Updated 06/23/22 @ 00:42 by Carroll Pinzon) Right lower quadrant pain (Acute) Plan of Treatment: Continue with present treatment and follow up plan. Pt is to keep follow up appointment as instructed and take medications as ordered. Discharge Medications Discharge Medications: No Known Allergies Allergy (Verified 06/22/22 17:22) New Prescriptions oxycodone-acetaminophen 5 mg-325 mg tablet (Percocet) 1 tab PO Q6H PRN #20 tabs 06/25/22 [Rx] oxycodone-acetaminophen 5 mg-325 mg tablet (Percocet) 1 tab PO Q6H PRN Pain #20 tabs 06/25/22 [Rx] Discharge Disposition Assessment: see hospital course above Discharge Plan Discharge Plan Hospital Course: The merary is a 37 year old male who is currently a prisoner in [facility]. His real name is Rasta Gotti .He presented with acute onset of right lower quadrant pain with a white blood cell count of 19.6k. He complained of right lower quadrant pain and had significant guarding throughout. CT scan done in the emergency room without oral contrast showed no obvious appendicitis and no abnormal findings. He was observed initially on IVFs fluid and was NPO .. His pain has s lessened and and he is tolerating a regular diet. . He will be discharged back to his usual shelter facility. He will be given Percocet, 5 mg tablets, one Po q 6 Hr PRN pain. Patient Disposition: HOME, SELF-CARE Condition: Stable Health Concerns: Post Hospitalization: new medications and changes needed to prevent readmission or further decline. Pt educated and given instructions on all concerns. Care Plan Goals: as above, resume usual activity Plan of Treatment: Continue with present treatment and follow up plan. Pt is to keep follow up appointment as instructed and take medications as ordered. Assessment: see hospital course above Prescription drug monitoring program results: PDMP reviewed and no concerns identified Prescriptions: New oxycodone-acetaminophen [Percocet] 5-325 mg Tablet 1 tab PO Q6H MDD 4 PRN (Reason: Pain) Qty: 20 0RF oxycodone-acetaminophen [Percocet] 5-325 mg tablet 1 tab PO Q6H MDD 4 PRNQty: 20 0RF Follow ups/Referrals Follow ups/Referrals: NFD,None [Primary Care Provider] - Instructions Instructions: Nausea and Vomiting, Adult, [id number], Abdominal Pain, Adult, [id number], Flank Pain, Adult, [id number]
== END 2022-06-25 15:00 | disposition home or self-care (01) | DRG 392 ==
LOC: ER 16:21 → MED/SURG 21:15
PROVIDERS: ADMIT Surgery; ATTEND Surgery